=== PATIENT | male | born 1945 | race Caucasian/White ===

== ENCOUNTER 2022-01-14 19:06 | Inpatient (IN) | payer MEDICARE, BC ==
[~2022-01-14] VITALS: Ht 185.4 cm; Wt 83.9 kg
[2022-01-14] MEDS ORDERED: LIDOCAINE HCL 1% 20 ML VIAL ONE (19:30)
[2022-01-14] MEDS ORDERED: LIDOCAINE HCL 2% 20 ML VIAL IJ ONE (19:30)
[2022-01-14] MEDS ORDERED: TDAP DIPH,PERTUSS,TET VAC/PF 0.5 ML DISP.SYRIN IM ONE ×2 (19:30→19:35)
--- NOTE | 2022-01-14 19:40 | NUR ---
RICHARD officer Paco rojas #: [id number] here to speak with patient and place pt on hold
[2022-01-14 19:41] LABS: HEMATOCRIT 37.1 % (36.7-47.1); MEAN CORPUSCULAR HEMOGLOBIN 33.5 uug (23.8-33.4); MEAN CORPUSCULAR VOLUME 99.1 fL (73.0-96.2); PLATELET COUNT (AUTO) 189 K/uL (152-348)
[2022-01-14] MEDS ORDERED: LIDOCAINE HCL 2% 20 ML VIAL ONE (19:43)
--- NOTE | 2022-01-14 19:52 | NUR ---
Dr. Stringer at bedside for MSE
[2022-01-14 19:54] LABS: ALANINE AMINOTRANSFERASE 36 U/L (16-63); ALKALINE PHOSPHATASE 65 U/L (50-136); ASPARTATE AMINOTRANSFERASE 21 U/L (15-37); BILIRUBIN,DIRECT 0.1 mg/dL (0.0-0.2); BILIRUBIN,TOTAL 0.4 mg/dL (0.2-1.0); CARBON DIOXIDE 22 mmol/L (21-32); CHLORIDE 105 mmol/L (98-107); CREATININE 1.1 mg/dL (0.6-1.3); ETHANOL 232 MG/DL (0-0); GLUCOSE 90 mg/dL (74-106); POTASSIUM 3.7 mmol/L (3.5-5.1); TOTAL PROTEIN, SERUM 6.9 g/dL (6.4-8.2); UREA NITROGEN, BLOOD 16 mg/dL (7-18)
[2022-01-14 19:55] LABS: ACETAMINOPHEN < 2.0 ug/mL (10-30)
--- NOTE | 2022-01-14 20:24 | NUR ---
crisis team reymundo is here to see the pt.
[2022-01-14 21:08] LABS: *BILIRUBIN,URIN NEGATIVE (NEGATIVE); *BLOOD, URINE NEGATIVE (NEGATIVE); *CLARITY,URINE CLEAR (CLEAR); *COLOR,URINE YELLOW (YELLOW); *KETONES,URINE NEGATIVE (NEGATIVE); *UROBILINOGEN,URINE 0.2 E.U./dl (NORMAL); LEUKOCYTE ESTERASE ,URINE NEGATIVE (NEGATIVE); NITRITE, URINE NEGATIVE (NEGATIVE); PH,URINE 5.5 (5.0-8.0); UGLUCOSE NEGATIVE (NEGATIVE)
[2022-01-14 21:15] LABS: *AMPHETAMINE, URINE NEGATIVE (NEGATIVE); *CANNABINOID, URINE NEGATIVE (NEGATIVE); *COCCAINE, URINE NEGATIVE (NEGATIVE); *OPIATE, URINE NEGATIVE (NEGATIVE); *PHENCYCLIDINE SCREEN,URINE NEGATIVE (NEGATIVE)
--- NOTE | 2022-01-14 21:39 | NUR ---
pt continues to try to leave the room and needs constant redirection despite the fact that the pt has a sitter at the bedside.
[2022-01-14] MEDS ORDERED: LORAZEPAM 1 MG TABLET ONE (21:42)
[2022-01-14] MEDS ORDERED: LORAZEPAM 0.5 MG TABLET PO ONE (21:45)
[2022-01-14] MEDS ORDERED: diphenhydrAMINE 50 MG/1 ML VIAL ONE (22:07)
[2022-01-14] MEDS ORDERED: OLANZAPINE 10 MG VIAL IM ONE ×2 (22:07→22:15)
[2022-01-14] MEDS ORDERED: diphenhydrAMINE 50 MG/1 ML VIAL IM ONE (22:15)
[2022-01-14] MEDS ORDERED: DICL75TA5 PO (22:47)
[2022-01-14] MEDS ORDERED: TOPI50TA24 PO (22:47)
[2022-01-14] MEDS ORDERED: LEVO137T2 PO (22:47)
[2022-01-14] MEDS ORDERED: GABA-532 PO (22:47)
[2022-01-14] MEDS ORDERED: IRBE300T18 PO (22:47)
[2022-01-14] MEDS ORDERED: ATOR20TA PO (22:47)
[2022-01-14] MEDS ORDERED: CLON0.5T PO (22:48)
--- NOTE | 2022-01-14 23:14 | NUR ---
one to one sitter remains at the bedside. pt remains restless but is not trying to get oob.
--- NOTE | 2022-01-15 01:27 | NUR ---
pt remains with sitter at bedside. pt is more calm at this time not trying to get oob.
--- NOTE | 2022-01-15 04:15 | NUR ---
pt with eyes closed, resp even unlabored. sitter remains at bedside.
--- NOTE | 2022-01-15 06:15 | NUR ---
Report given to Hermila ACEVES U
--- NOTE | 2022-01-15 06:33 | NUR ---
Pt. admitted to [facility]HU , under care of Dr. Mckeon Belongs List completed Patient was transported via wheelchair by Kevin ACEVES accompanied by Graciela BENITEZ
[2022-01-15] MEDS: LEVOTHYROXINE SODIUM 137 MCG TABLET PO SCH (07:05)
[2022-01-15 07:30] VITALS: BP 137/80
--- NOTE | 2022-01-15 09:00 | NUR ---
Received this admission. Alert, oriented x 4, ambulatory. Anxious when he's going to be discharged. Cooperative and compliant with care and taking of medications. Left wrist wound care done, no bleeding noted, kept clean and dry.
[2022-01-15] MEDS ORDERED: ZOLPIDEM 5 MG TABLET PO PRN ×2 (09:45→10:00)
[2022-01-15] MEDS ORDERED: LORAZEPAM 1 MG TABLET PO PRN (09:45)
[2022-01-15] MEDS: THIAMINE HCL 100 MG TABLET PO SCH (10:07)
[2022-01-15] MEDS: LORAZEPAM 1 MG TABLET PO PRN (10:08)
[2022-01-15] MEDS: ESCITALOPRAM OXALATE 10 MG TABLET PO SCH (10:20)
[2022-01-15] MEDS: LOSARTAN POTASSIUM 50 MG TABLET PO SCH (12:14)
--- NOTE | 2022-01-15 13:05 | NUR ---
Resting between care. Calm and compliant with care
--- NOTE | 2022-01-15 16:16 | NUR ---
GPS: CARRIED OUT DR MOORE ORDER FOR PT TOBRAMYCIN AND DEXAMETHASONE OPHTHALMIC SUSPENSION FOR [facility]. PT BROUGHT IT FROM HOME AND PER PT WAS ORDERED BY EYE DOCTOR AND GOT IT LAST WEDNESDAY AND JUST STARTED USING IT 2 DAYS AGO. TO BE ADMINISTERED Q6HRS X 10 DAYS. WILL BRING THE MED TO PHARMACY.
[2022-01-15] MEDS ORDERED: MAG HYDROX/AL HYDROX/SIMETH 30 ML LIQUID UDC PO PRN (16:30)
[2022-01-15] MEDS ORDERED: ACETAMINOPHEN 325 MG TABLET PO PRN (16:30)
[2022-01-15] MEDS ORDERED: MAGNESIUM HYDROXIDE 30 ML LIQUID UDC PO PRN (16:30)
[2022-01-15] MEDS: GABAPENTIN 100 MG CAPSULE PO SCH (16:30)
[2022-01-15 16:59] VITALS: BP 128/79
--- NOTE | 2022-01-15 17:17 | NUR ---
Remained to himself but responds to interaction. Resting most of the time between care. Reports of pain to left wrist, Tylenol po given
[2022-01-15] MEDS ORDERED: TOBRAMYCIN EACHEYE SCH ×2 (18:00→18:12)
[2022-01-15] MEDS ORDERED: DEXAMETHASONE EACHEYE SCH ×2 (18:00→18:12)
[2022-01-15] MEDS: TOBRAMYCIN/DEXAMETH OPHT DROP 2.5 ML BOTTLE EACHEYE SCH (18:25)
--- NOTE | 2022-01-15 18:56 | NUR ---
Reports of pain to the left hand,noted bruising. Ice pack applied. Endorsed for further care
[2022-01-15] MEDS: HYDROCODONE/APAP 5-325MG TABLET PO PRN (20:19)
--- NOTE | 2022-01-15 20:30 | NUR ---
RECEIVED PATIENT IN HIS ROOM IN BED. HE IS NOTED A/O X 4. HE IS ABLE TO VERBALIZED HIS FEELING. PATIENT APPEARS DEPRESSED AND HE MINIMIZED HIS CONDITION. HE STATED, "I FEEL ASHAMED FOR WHAT I DID. I DIDN'T THINK RIGHT". HIS AFFECT IS BLUNTED HIS MOOD IS DEPRESSED. PATIENT V/S ARE STABLE, HE IS IN NO DISTRESS. B/P AT 1999 WAS 162/82MMHG. HE C/O PAIN ON HIS LEFT WRIST 10/10 ON THE PAIN NUMBER SCALE. PATIENT WAS GIVEN NORCO 5-350MG AND NOW HIS BP HIS 138/74. PATIENT DENIED SI/HI/VH/AH HE IS ABLE TO VERBALLY CFS. PATIENT WAS REASSURED FOR HIS SAFETY. SAFETY AND FALL PRECAUTION ARE IN PLACE. HE WAS GIVEN PO FLUIDS AND SNACKS. WILL CONTINUE TO MONITOR
[2022-01-15] MEDS: ATORVASTATIN 20 MG TABLET PO SCH (20:45)
[2022-01-15 20:58] VITALS: BP 162/81
[2022-01-15 21:30] VITALS: BP 138/58
[2022-01-16] MEDS: TOBRAMYCIN/DEXAMETH OPHT DROP 2.5 ML BOTTLE EACHEYE SCH ×4 (00:27→17:34)
[2022-01-16] MEDS: LEVOTHYROXINE SODIUM 137 MCG TABLET PO SCH (06:32)
[2022-01-16 07:28] LABS: HEMATOCRIT 38.4 % (36.7-47.1); MEAN CORPUSCULAR HEMOGLOBIN 34.1 uug (23.8-33.4); MEAN CORPUSCULAR VOLUME 98.9 fL (73.0-96.2); PLATELET COUNT (AUTO) 184 K/uL (152-348)
[2022-01-16 07:30] VITALS: BP 144/83
[2022-01-16 07:46] LABS: THYROID STIMULATING HORMONE 0.332 mIU/mL (0.358-3.740)
[2022-01-16 08:11] LABS: CREATININE 1.1 mg/dL (0.6-1.3); MAGNESIUM 1.9 mg/dL (1.8-2.4); POTASSIUM 3.5 mmol/L (3.5-5.1); TOTAL PROTEIN, SERUM 7.2 g/dL (6.4-8.2)
[2022-01-16] MEDS: GABAPENTIN 100 MG CAPSULE PO SCH ×2 (08:48→17:33)
[2022-01-16] MEDS: ESCITALOPRAM OXALATE 10 MG TABLET PO SCH (08:48)
[2022-01-16] MEDS: THIAMINE HCL 100 MG TABLET PO SCH (08:48)
[2022-01-16] MEDS: MULTIVITAMINS,THERAPEUTIC TABLET PO SCH (08:48)
[2022-01-16] MEDS: LOSARTAN POTASSIUM 50 MG TABLET PO SCH (08:49)
[2022-01-16] MEDS: HYDROCODONE/APAP 5-325MG TABLET PO PRN ×3 (08:59→22:55)
--- NOTE | 2022-01-16 15:47 | NUR ---
ANTONIO Initial Discharge Note: Pt currently resides at [address] [place], [place] [id number]. ANTONIO contacted pt's , Natasha ([phone]) and was unable to connect or leave a voicemail. ANTONIO will continue to try calling to discuss discharge plan. Pt stated he will return home with transportation provided by his family. ANTONIO will continue to work with pt, family and MD to ensure a safe and proper discharge plan.
[2022-01-16 16:00] VITALS: BP 140/74
[2022-01-16] MEDS: LORAZEPAM 1 MG TABLET PO PRN (20:16)
[2022-01-16] MEDS: ATORVASTATIN 20 MG TABLET PO SCH (20:16)
[2022-01-16 20:22] VITALS: BP 107/62
[2022-01-17] MEDS: TOBRAMYCIN/DEXAMETH OPHT DROP 2.5 ML BOTTLE EACHEYE SCH ×4 (00:03→18:00)
--- NOTE | 2022-01-17 05:11 | NUR ---
Received the patient at the start of the shift , requesting a " Sleeping medicine and a pain pill ". Shortly after the PRN medication for sleep , Ambien ,was given , this patient became very confused. Visually and auditorily hallucinating. This music writer had the patient in the Beth chair at the station for close monitoring. Reorientation and reassurance were provided along with fluids and food. A few times the patient wanted to go back to his bed. He would only stay in bed for short periods of time, then he would be out in the queen looking for his " Son " and " Want to blow up this place". The patient needed constant redirection during the night. Safety Stratiges are in place and frequent rounding . Total sleep was 1.45.
[2022-01-17] MEDS: LEVOTHYROXINE SODIUM 125 MCG TABLET PO SCH (06:16)
[2022-01-17 07:30] VITALS: BP 131/77
[2022-01-17] MEDS: THIAMINE HCL 100 MG TABLET PO SCH (08:25)
[2022-01-17] MEDS: MULTIVITAMINS,THERAPEUTIC TABLET PO SCH (08:26)
[2022-01-17] MEDS: ESCITALOPRAM OXALATE 10 MG TABLET PO SCH (08:26)
[2022-01-17] MEDS: GABAPENTIN 100 MG CAPSULE PO SCH ×2 (08:26→18:00)
[2022-01-17] MEDS: LOSARTAN POTASSIUM 50 MG TABLET PO SCH (08:26)
[2022-01-17] MEDS ORDERED: TEMAZEPAM 15 MG CAPSULE PO PRN (10:00)
--- NOTE | 2022-01-17 11:40 | NUR ---
GPS: PT SEEN TODAY AWAKE AND ON THE HALLWAY, COMPLAINT OF NOT HAVING ENOUGH SLEEP BECAUSE OF THE EFFECT OF THE AMBIEN THAT MADE HIM. REPORTED TO PSYCHIATRIST UPON ROUNDS. PER PSYCHIATRIST, HE WILL CHANGE THE MEDS. PT COMPLIANT WITH CARE AND MEDS. ABLE TO MADE NEEDS KNOWN. PT FAMILY CALLS. DENIES PAIN OR DISCOMFORT ON THE SUTURE SITE. UPON MAKING ROUNDS, PT IS ASLEEP RIGHT NOW. DENIES SI/HI.
--- NOTE | 2022-01-17 12:31 | NUR ---
GPS: PSYCHIATRIST ISSUED 5250 HOLD FOR [facility] HEARING WITH PROBABLE CAUSE OF DANGER TO SELF ONLY. PT GIVEN A COPY.
[2022-01-17 16:00] VITALS: BP 121/67
[2022-01-17 20:00] VITALS: BP 115/74
[2022-01-17] MEDS: ATORVASTATIN 20 MG TABLET PO SCH (20:23)
[2022-01-17] MEDS: MELATONIN 3 MG TABLET PO SCH (20:23)
[2022-01-17] MEDS: HYDROCODONE/APAP 5-325MG TABLET PO PRN (20:27)
[2022-01-17] MEDS: NEOMY/BACITRAC/POLYMI OINT 28.35 GM TUBE TOP SCH (21:30)
--- NOTE | 2022-01-17 21:45 | NUR ---
RECEIVED PATIENT IN THE DAYROOM WATCHING TV. HE IS NOTED A/O X 4. CALM AND COOPERATIVE UPON APPROACHED. HE DENIED SI/HI/VA/AH. HE STATED, "IT WAS FOOLISH WHAT I DID. I WILL NEVER DO IT AGAIN". PATIENT V/S ARE STABLE. HE IS REASSURED FOR HIS SAFETY. SAFETY AND FALL PRECAUTION ARE IN PLACE. ASSESSMENT OF HIS LEFT WRIST LACERATION ANTERIOR ASPECT: IT WAS NOTED FEW SUTURES AND A SCANT AMOUNT OF SEROUS DISCHARGED, NO REDNESS NO SWOLLEN OR WARM TO THE TOUCH WAS NOTED. PATIENT IS AFEBRILE IN NO ACUTE DISTRESS. HOWEVER, HIS LEFT HAND POSTERIOR ASPECT WAS NOTED SWOLLEN. NO REDNESS, NO WARM TO THE TOUCH NO DISCHARGE WAS NOTED. PATIENT C/O PAIN 7/10 IN THE PAIN SCALE. NORCO 5-[address] CHAU WAS NOTIFIED OF PATIENT'S CONDITION AND NEW ORDERS OBTAINED TO ADMINISTER NEOSPORIN TO LEFT WRIST LACERATION Q12HRS, DO CBC IN THE MORNING APPLY COLD COMPRESS TO HIS LEFT HAND AND ELEVATED HIS LEFT HAND A BIT USING A PILLOW. ORDER NOTED AND CARRIED OUT. PATIENT WAS GIVEN PO FLUIDS AND SNACKS. WILL CONTINUE TO MONITOR.
[2022-01-18] MEDS ORDERED: NEOMY/BACITRAC/POLYMI OINT 28.35 GM TUBE ONE (04:19)
[2022-01-18] MEDS: TOBRAMYCIN/DEXAMETH OPHT DROP 2.5 ML BOTTLE EACHEYE SCH ×4 (06:16→17:50)
[2022-01-18] MEDS: LEVOTHYROXINE SODIUM 125 MCG TABLET PO SCH (06:17)
[2022-01-18 07:35] LABS: HEMATOCRIT 37.9 % (36.7-47.1); MEAN CORPUSCULAR HEMOGLOBIN 33.7 uug (23.8-33.4); MEAN CORPUSCULAR VOLUME 98.8 fL (73.0-96.2); PLATELET COUNT (AUTO) 189 K/uL (152-348)
[2022-01-18 08:11] VITALS: BP 107/63
[2022-01-18] MEDS: MULTIVITAMINS,THERAPEUTIC TABLET PO SCH (08:58)
[2022-01-18] MEDS: LOSARTAN POTASSIUM 50 MG TABLET PO SCH (08:58)
[2022-01-18] MEDS: THIAMINE HCL 100 MG TABLET PO SCH (08:59)
[2022-01-18] MEDS: ESCITALOPRAM OXALATE 10 MG TABLET PO SCH (08:59)
[2022-01-18] MEDS: GABAPENTIN 100 MG CAPSULE PO SCH ×2 (08:59→17:51)
[2022-01-18] MEDS: HYDROCODONE/APAP 5-325MG TABLET PO PRN ×2 (09:00→17:51)
[2022-01-18] MEDS: NEOMY/BACITRAC/POLYMI OINT 28.35 GM TUBE TOP SCH ×2 (09:00→20:43)
[2022-01-18 16:18] VITALS: BP 114/67
--- NOTE | 2022-01-18 18:05 | NUR ---
GPS: Nursing note: Pt is a/o x 4, cooperative with care. No events during shift occurred. Wound dressing changed, dry and intact. Provided PRN pain medication as indicated. Will endorse.
[2022-01-18 20:04] VITALS: BP 108/69
[2022-01-18] MEDS: MELATONIN 3 MG TABLET PO SCH (20:42)
[2022-01-18] MEDS: ATORVASTATIN 20 MG TABLET PO SCH (20:42)
[2022-01-19] MEDS: TOBRAMYCIN/DEXAMETH OPHT DROP 2.5 ML BOTTLE EACHEYE SCH ×5 (00:22→23:50)
--- NOTE | 2022-01-19 04:04 | NUR ---
RECEIVED PATIENT IN THE DAYROOM WATCHING TV. HE IS NOTED A/O X 4. HE APPEARS DEPRESSED. HOWEVER, HE DENIED SI/HI/VA/AH. PATIENT V/S ARE STABLE. HE IS REASSURED FOR HIS SAFETY. SAFETY AND FALL PRECAUTION ARE IN PLACE. ASSESSMENT OF HIS LEFT WRIST LACERATION ANTERIOR ASPECT: NO REDNESS NO SWELLING NO DISCHARGES OR WARM TO THE TOUCH WAS NOTED. PATIENT IS AFEBRILE IN NO DISTRESS. HIS LEFT HAND POSTERIOR ASPECT WAS NOTED LESS SWELLING. HE DENIED PAIN NORCO 5-325 WAS GIVEN EARLIER. PATIENT WAS GIVEN PO FLUIDS AND SNACKS. WILL CONTINUE TO MONITOR.
[2022-01-19] MEDS: LEVOTHYROXINE SODIUM 125 MCG TABLET PO SCH (06:21)
[2022-01-19] MEDS: HYDROCODONE/APAP 5-325MG TABLET PO PRN ×2 (06:42→15:33)
[2022-01-19] MEDS: GABAPENTIN 100 MG CAPSULE PO SCH ×2 (08:51→16:14)
[2022-01-19] MEDS: ESCITALOPRAM OXALATE 10 MG TABLET PO SCH (08:51)
[2022-01-19] MEDS: THIAMINE HCL 100 MG TABLET PO SCH (08:51)
[2022-01-19] MEDS: LOSARTAN POTASSIUM 50 MG TABLET PO SCH (08:52)
[2022-01-19] MEDS: MULTIVITAMINS,THERAPEUTIC TABLET PO SCH (08:52)
[2022-01-19] MEDS: NEOMY/BACITRAC/POLYMI OINT 28.35 GM TUBE TOP SCH ×2 (08:53→20:22)
[2022-01-19 10:12] VITALS: BP 127/67
--- NOTE | 2022-01-19 15:38 | NUR ---
GPS: Nursing Notes: Destructive Behavior To Self: Patient is awake and responding to his name, needs prompting to participate in therapeutic groups, cooperative with nursing care, depressed mood and blunted affect, denies SI, stated "No, It was a mistake what I did.. I was drunk and frustrated.. I do not want to kill myself..", A/Ox4, continue to monitor for safety, unkempt appearance, continue with treatment plan.
[2022-01-19 16:47] VITALS: BP 126/67
[2022-01-19 20:02] VITALS: BP 113/74
[2022-01-19] MEDS: ATORVASTATIN 20 MG TABLET PO SCH (20:21)
[2022-01-19] MEDS: MELATONIN 3 MG TABLET PO SCH (20:21)
[2022-01-20] MEDS: TOBRAMYCIN/DEXAMETH OPHT DROP 2.5 ML BOTTLE EACHEYE SCH ×3 (06:14→17:14)
[2022-01-20] MEDS: LEVOTHYROXINE SODIUM 125 MCG TABLET PO SCH (06:15)
--- NOTE | 2022-01-20 06:49 | NUR ---
GPS NOTES: Patient received in the dayroom watching TV, Denies SI at this time. Self care, ambulatory. Compliant with medications. No behavioral issues noted. Slept 6.O. Frequent monitoring observed
[2022-01-20 07:30] VITALS: BP 119/72
[2022-01-20] MEDS: GABAPENTIN 100 MG CAPSULE PO SCH ×2 (08:35→16:35)
[2022-01-20] MEDS: LOSARTAN POTASSIUM 50 MG TABLET PO SCH (08:35)
[2022-01-20] MEDS: NEOMY/BACITRAC/POLYMI OINT 28.35 GM TUBE TOP SCH ×2 (08:36→20:42)
[2022-01-20] MEDS: MULTIVITAMINS,THERAPEUTIC TABLET PO SCH (08:36)
[2022-01-20] MEDS: ESCITALOPRAM OXALATE 10 MG TABLET PO SCH (08:36)
[2022-01-20] MEDS: THIAMINE HCL 100 MG TABLET PO SCH (08:36)
[2022-01-20] MEDS: HYDROCODONE/APAP 5-325MG TABLET PO PRN (09:32)
--- NOTE | 2022-01-20 14:14 | NUR ---
GPS: Nursing Notes: Destructive Behavior To Self: Patient is awake and responding to his name, cooperative with nursing care, compliant with his medications, showered and shaved today, depressed mood and appropriate affect, denies SI, stated "I made a mistake.. I was drunk and frustrated.. I do not want to hurt myself..", participating in therapeutic groups, gets anxious at time, continue to follow staff directions, continue to monitor for safety, continue with treatment plan.
[2022-01-20] MEDS: GLUCERNA SHAKE 237 ML CAN PO SCH (14:30)
[2022-01-20 15:43] VITALS: BP 106/64
[2022-01-20 20:05] VITALS: BP 111/73
[2022-01-20] MEDS: ATORVASTATIN 20 MG TABLET PO SCH (20:41)
[2022-01-20] MEDS: MELATONIN 3 MG TABLET PO SCH (20:41)
[2022-01-21] MEDS: TOBRAMYCIN/DEXAMETH OPHT DROP 2.5 ML BOTTLE EACHEYE SCH ×4 (00:10→18:00)
[2022-01-21] MEDS: LEVOTHYROXINE SODIUM 125 MCG TABLET PO SCH (06:04)
[2022-01-21 07:30] VITALS: BP 112/60
[2022-01-21] MEDS: THIAMINE HCL 100 MG TABLET PO SCH (08:31)
[2022-01-21] MEDS: MULTIVITAMINS,THERAPEUTIC TABLET PO SCH (08:31)
[2022-01-21] MEDS: LOSARTAN POTASSIUM 50 MG TABLET PO SCH (08:32)
[2022-01-21] MEDS: GABAPENTIN 100 MG CAPSULE PO SCH ×2 (08:32→17:00)
[2022-01-21] MEDS: GLUCERNA SHAKE 237 ML CAN PO SCH (08:33)
[2022-01-21] MEDS: ESCITALOPRAM OXALATE 10 MG TABLET PO SCH (08:35)
[2022-01-21] MEDS: NEOMY/BACITRAC/POLYMI OINT 28.35 GM TUBE TOP SCH (08:36)
--- NOTE | 2022-01-21 14:00 | NUR ---
Received patient awake in his room. A/O X 4 to person, place. Pt. is calm, cooperative, compliant with medications. Pt. denies SI. Ambulates independently. Emotional support provided. Fall and safety precautions implemented.
--- NOTE | 2022-01-21 14:43 | NUR ---
GPS: PT ATTENDED THE [facility] HEARING FOR PROBABLE CAUSE DANGER TO SELF. PER REFEREE, PT DOES NOT HAVE THE REASON TO STAY AND GRANTED PT TO BE DISCHARGE TODAY. COMMUNICATED WITH JENNIFFER GIMENEZ AND REYNA. PT WAS HAPPY WITH THE RESULT. PT CALLED TO PICK HIM UP.
--- NOTE | 2022-01-21 15:34 | NUR ---
ANTONIO Discharge Note: Pt will be discharged to Home via private vehicle transportation by pts , Vnanessa ([phone]) at 5PM. ANTONIO contacted Vannessa and left a voicemail for a call back regarding confirmation for discharge. Pt stated to his and nursing that his confirmed with the pt regarding the discharge today and transportation to home by Vannessa. Pt is aware and agreeable with discharge plan. Pt is alert and oriented x4, is unable to plan for self-care at this time; however, is willing to accept care at home by family. Pt denies any suicidal or homicidal ideation. Pt will follow-up with his outpatient Medical Doctor, Dr. Hammer and his outpatient psychiatrist and psychologist that will be assigned on Wednesday the 2021 at 8AM via teletherapy by [facility] ([phone]) located at [address] [place] [address]. PHARMACY: [place] [address] ([phone]).
--- NOTE | 2022-01-21 15:45 | NUR ---
Received orders to discharge this patient, Psych prescription was given to patient from Dr. Mckeon and Dr. Suazo was informed at 15:39 about patient's discharge plan, and prescription was requested from him since patient was going home, he was also informed [place] [address] according to his convenience.
[2022-01-21 16:00] VITALS: BP 112/74
--- NOTE | 2022-01-21 16:30 | NUR ---
Patient states that he can get medical prescriptions from his primary doctor.
--- NOTE | 2022-01-21 17:09 | NUR ---
Received orders to discharge this patient to home by his Alba who came to pick him up at [facility] in a private car. All belongings and valuables were returned to patient. Patient was agreeable with discharge plans and signed all discharge papers. Patient left the unit at 17:00. Reassurance given. Fall and safety precautions implemented.
== END 2022-01-21 17:00 | disposition home or self-care (01) | DRG 885 ==
LOC: ER 19:09 → GPS 01-15 06:22
PROVIDERS: ADMIT Psychiatry & Neurology Psychiatry; ATTEND Internal Medicine
PROC: 0HQEXZZ Repair Left Lower Arm Skin, External Approach (ICD-10-PCS; principal; 2022-01-14)
DX: F32.2 Major depressive disorder, single episode, severe without psychotic features (principal); F10.229 Alcohol dependence with intoxication, unspecified; Y90.7 Blood alcohol level of 200-239 mg/100 ml; X78.1XXA Intentional self-harm by knife, initial encounter; S61.512A Laceration without foreign body of left wrist, initial encounter; Y92.481 Parking lot as the place of occurrence of the external cause; E03.9 Hypothyroidism, unspecified; Z59.9 Problem related to housing and economic circumstances, unspecified; Z79.890 Hormone replacement therapy; Z79.899 Other long term (current) drug therapy; M19.90 Unspecified osteoarthritis, unspecified site; M62.81 Muscle weakness (generalized); Z91.81 History of falling; F41.9 Anxiety disorder, unspecified; E78.5 Hyperlipidemia, unspecified; E05.90 Thyrotoxicosis, unspecified without thyrotoxic crisis or storm; G31.84 Mild cognitive impairment of uncertain or unknown etiology; G62.9 Polyneuropathy, unspecified; I10 Essential (primary) hypertension; Z20.822 Contact with and (suspected) exposure to COVID-19
CPT/HCPCS: 36415; 83735; 84100; 84443; 85025; 90715; A4663; A6209; G0480; J1200; J2358; J3490